=== PATIENT | female | born 1955 ===

== ENCOUNTER 2021-03-18 13:57 | Emergency (ER) | payer OTHER, MEDICARE, SELFPAY ==
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
[2021-03-18 14:23] VITALS: BP 141/93; PULSE 63; RESP 18; TEMP 36.4; O2SAT 100
== END 2021-03-18 15:30 | disposition home or self-care (01) ==
PROVIDERS: Emergency Provider Nurse Practitioner
DX: S61.522A Laceration with foreign body of left wrist, initial encounter (principal); S63.502A Unspecified sprain of left wrist, initial encounter; S66.912A Strain of unspecified muscle, fascia and tendon at wrist and hand level, left hand, initial encounter; S23.41XA Sprain of ribs, initial encounter; V43.52XA Car driver injured in collision with other type car in traffic accident, initial encounter
CPT/HCPCS: 71100; 73110; 99214; G0463